=== PATIENT | female | born 1965 | race Hispanic/Latino ===

== ENCOUNTER 2016-07-11 19:17 | Emergency (ER) | payer MEDICARE, OTHER ==
[2016-07-11 19:32] VITALS: BMI 26.3
[2016-07-11 19:38] VITALS: TEMP 98.8
[2016-07-11] MEDS ORDERED: Oxycodone/Acetaminophen 5/325 mg Tab PO STA (19:42)
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
[2016-07-11 21:31] VITALS: BP 153/92
[2016-07-11 21:32] VITALS: PULSE 55; RESP 16; O2SAT 99
== END 2016-07-11 21:31 | disposition home or self-care (01) ==
LOC: ED 19:17
DX: M54.2 Cervicalgia (principal); R51 Headache; S00.83XA Contusion of other part of head, initial encounter; Y04.0XXA Assault by unarmed brawl or fight, initial encounter

== ENCOUNTER 2016-12-19 18:32 | Emergency (ER) | payer MEDICARE, OTHER ==
[2016-12-19 18:50] VITALS: BMI 28.5
[2016-12-19 19:40] VITALS: RESP 18; TEMP 97.8
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
[2016-12-19 22:37] VITALS: BP 111/82; PULSE 71; O2SAT 95
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
--- NOTE | 2016-12-20 09:57 | RAD ---
PROCEDURE: Left Foot Radiographs. HISTORY: fall COMPARISON: None. FINDINGS: BONES: Plantar calcaneal spur. Evidence of old talar injury. Evidence of healed 5th meta tarsal fracture. JOINTS: Normal. SOFT TISSUES: Normal. OTHER FINDINGS: None. IMPRESSION: No acute findings related to/accounting for the clinical presentation. Please note: No preliminary report/ innterpretation of this examination provided by emergency department personnel.
== END 2016-12-19 22:58 | disposition home or self-care (01) ==
LOC: ED 18:32
DX: S00.03XA Contusion of scalp, initial encounter (principal); S89.92XA Unspecified injury of left lower leg, initial encounter; S99.922A Unspecified injury of left foot, initial encounter; W01.198A Fall on same level from slipping, tripping and stumbling with subsequent striking against other object, initial encounter; Y92.000 Kitchen of unspecified non-institutional (private) residence as the place of occurrence of the external cause; Y93.01 Activity, walking, marching and hiking